=== PATIENT | male | born 1945 | race Caucasian/White ===

== ENCOUNTER 2016-11-11 13:50 | Outpatient (RCR) | payer MEDICARE, BC | END 2016-12-07 | disposition home or self-care (01) | LOC: PTY 13:50 | DX: M54.5 Low back pain (principal) | CPT/HCPCS: 97110; 97161; G0283; G8978; G8979 ==

== ENCOUNTER 2016-12-14 13:47 | Outpatient (RCR) | payer MEDICARE, BC | END 2017-01-07 | disposition home or self-care (01) | LOC: PTY 13:47 | DX: M54.5 Low back pain (principal) | CPT/HCPCS: 97110; G0283; G8979; G8980 ==

== ENCOUNTER 2017-03-02 11:00 | Outpatient (RCR) | payer MEDICARE, BC | END 2017-03-09 | disposition home or self-care (01) | LOC: PTY 11:00 | DX: S86.912A Strain of unspecified muscle(s) and tendon(s) at lower leg level, left leg, initial encounter (principal); X50.9XXA Other and unspecified overexertion or strenuous movements or postures, initial encounter; Y93.A1 Activity, exercise machines primarily for cardiorespiratory conditioning; Y92.89 Other specified places as the place of occurrence of the external cause; Y99.8 Other external cause status; M54.5 Low back pain | CPT/HCPCS: 97035; 97110; 97161; G0283; G8978; G8979 ==

== ENCOUNTER → 2018-04-19 | Outpatient (CLI) | payer MEDICARE, BC ==
--- NOTE | 2018-04-19 10:44 | Diagnostic Imaging Report ---
Indication:Abdominal pain Technique: Grayscale and duplex Doppler imaging of the abdomen performed. Comparison: None Findings: The liver, demonstrated part of the pancreas, aorta and IVC, both kidneys, spleen appear unremarkable. Gallbladder sludge noted. There is no biliary ductal dilatation identified. Doppler evaluation of the main portal vein shows patency. There is no ascites. CBD is 5 mm. No hydronephrosis seen. Small right pleural effusion is present. Impression: No acute findings. Small right pleural effusion
== END | disposition home or self-care (01) ==
LOC: ULS 08:37
DX: R10.11 Right upper quadrant pain (principal); J90 Pleural effusion, not elsewhere classified
CPT/HCPCS: 76700

== ENCOUNTER → 2019-08-14 | Outpatient (CLI) | payer MEDICARE, BC ==
--- NOTE | 2019-08-14 17:10 | Diagnostic Imaging Report ---
Indication: Cough Technique: 2 views of the chest Comparison: 07/29/2016 Findings: Interim development of a large right pleural effusion. Left lung and pleural space are clear. Again demonstrated is a T12 compression fracture deformity Impression: Large right pleural effusion T12 compression fracture deformity, also previously reported
== END | disposition home or self-care (01) ==
LOC: RAD 16:15
DX: Z01.818 Encounter for other preprocedural examination (principal); R05 Cough; J90 Pleural effusion, not elsewhere classified; Z01.812 Encounter for preprocedural laboratory examination
CPT/HCPCS: 71046

== ENCOUNTER 2019-08-24 08:16 | Outpatient (CLI) | payer MEDICARE, BC ==
[~2019-08-24] VITALS: Ht 162.6 cm; Wt 80.3 kg
[2019-08-24 08:59] VITALS: BP 116/80
[2019-08-24] MEDS ORDERED: SILDENAFIL PO (09:17)
[2019-08-24] MEDS ORDERED: PANTOPRAZOLE SO40 MG ORAL (09:17)
[2019-08-24] MEDS ORDERED: PROSCAR5 MG ORAL (09:17)
[2019-08-24] MEDS ORDERED: FOSAMAX70 MG ORAL (09:17)
[2019-08-24] MEDS ORDERED: TESTOSTERO100 MG/1 M IM (09:17)
--- NOTE | 2019-08-24 10:28 | Diagnostic Imaging Report ---
Indications: Pleural effusion Technique: Ultrasound used to localize optimal puncture site. Sterile prepping and draping of the right lower chest performed. Local anesthesia with 1% lidocaine. Dermatotomy made. Puncture of the pleural space using thoracentesis needle. Stylet removed. Catheter placed to vacuum bottle suction. Fluid was aspirated. Patient tolerated procedure well, without immediate complication. Findings: Followup sonography demonstrates slightly loculated residual fluid. Fluid obtained was katiana in color. Analysis of the fluid was sent to the lab/pathology as requested. Followup chest x-ray is pending. Impression: Successful ultrasound-guided right thoracentesis, yielding 0.3 liters of fluid
[2019-08-24 11:00] VITALS: BP 118/80
[2019-08-24 11:15] VITALS: BP 128/91
--- NOTE | 2019-08-24 11:16 | Diagnostic Imaging Report ---
Indication: Status post thoracentesis Comparison: 08/14/2019 A single view chest radiograph was obtained. Findings: There is no pneumothorax identified following right diagnostic/therapeutic thoracentesis. Radiographically, there is no significant change from 08/14/2019. Approximately 300 cc was removed from the right pleural space. Sonographically, there was evidence of loculation of the pleural fluid accounting for the subtotal removal of fluid. There is a rounded density at the right midlung level that may be inflammatory, neoplastic or due to rounded atelectasis. Follow-up is recommended. Consider obtaining CT chest with contrast for further evaluation and correlating with the diagnostic thoracentesis results.There is a scoliosis of the thoracic spine present. IMPRESSION: No pneumothorax following right thoracentesis. Subtotal removal of fluid due to loculation of pleural fluid with a moderate to large residual pleural effusion. Recommend follow-up. Consider CT with contrast for further evaluation as discussed above.
[2019-08-24 11:30] VITALS: BP 119/85
[2019-08-24 12:00] VITALS: BP 121/81
--- NOTE | 2019-08-24 12:03 | Diagnostic Imaging Report ---
Indication: Postthoracentesis Comparison: Earlier film today 10:19 A single view chest radiograph was obtained. Findings: Study performed 11:52. No change seen since the prior study. No evidence of pneumothorax. Other findings are stable. IMPRESSION: No pneumothorax identified.
== END 2019-08-24 12:30 | disposition home or self-care (01) ==
LOC: ULS 08:16
DX: J90 Pleural effusion, not elsewhere classified (principal)
CPT/HCPCS: 71045; 76942; 87070; 87205; 88104; 89051

== ENCOUNTER 2019-11-11 19:20 | Emergency (ER) | payer MEDICARE, BC ==
[~2019-11-11] VITALS: Ht 182.9 cm; Wt 108.9 kg
[~2019-11-11 19:20] MED LIST: FOSAMAX70 MG ORAL; FUROSEMIDE20 M1 ORAL; PANTOPRAZOLE SO40 MG ORAL; PROSCAR5 MG ORAL; SILDENAFIL PO; TESTOSTERO100 MG/1 M IM
--- NOTE | 2019-11-11 19:34 | NUR ---
ED Nurse Note: pt presents to ED with SOB and bilat lower extremity swelling. pt states that he was recently at [facility] for a varicose vein procedure because he has chronic SOB and edema of his lower extremities. pt has a dressing to his R chest from a recent procedure. pt denies any pain at this time
[2019-11-11 19:45] VITALS: BP 123/84
--- NOTE | 2019-11-11 20:01 | Emergency Room Report ---
History of Present Illness General Chief Complaint: Dyspnea/Respdistress Source: Patient Present Illness HPI Patient presents with complaints of worsening shortness of breath Reports that he has had chronic right-sided pleural effusion which Different specialist and primary physician have not been able to determine the source of Patient has also been having increased edema in both of his lower extremities up to the pelvic area Patient had recent varicose vein surgery as well Patient has been following a thoracic surgeon at [facility] Reports that he had the chest tube catheter removed on Tuesday at [facility] And now presents with increasingly shortness of breath Denies any vomiting or diarrhea reports that recently had a trip to [place] In end of September where he had poor diet and increase salt intake Allergies: Coded Allergies: No Known Allergies (Unverified , 11/11/16) Patient History Past Medical History: see triage record Reviewed Nursing Documentation: PMH: Agreed; PSxH: Agreed Nursing Documentation-PMH Hx Cardiac Problems: No Hx Cancer: No Hx Gastrointestinal Problems: Yes Hx Neurological Problems: No Review of Systems All Other Systems: negative except mentioned in HPI Physical Exam Vital Signs Date Time Temp Pulse Resp B/P (MAP) Pulse Ox O2 Delivery O2 Flow Rate FiO2 11/11/19 19:27 98.8 116 18 123/84 (97) 89 Room Air Sp02 EP Interpretation: reviewed, abnormal - 89% on room air which is low on 2 L the patient was saturating at 98% which is normal General Appearance: mild distress - Appears uncomfortable and short of breath Head: normocephalic, atraumatic Eyes: bilateral eye PERRL, bilateral eye EOMI ENT: EOM grossly intact, normal pharynx Neck: supple Respiratory: no retraction, no accessory muscle use, crackles - And decreased breath sounds in the right lower lobe Cardiovascular #1: tachycardia Gastrointestinal: non tender, soft Musculoskeletal: other - Significant edema bilaterally involving from pelvic area down all the way through down to the feet Neurologic: alert, oriented x3 Psychiatric: normal inspection Skin: other - Significant edema involving the pelvic area genital region edema down to the ankles and feet bilaterally. Dressing patch in the right lower chest Lymphatic: no adenopathy Medical Decision Making Diagnostic Impression: Primary Impression: Dyspnea Additional Impressions: Trapped lung Pleural effusion ER Course Given the patient's history and presentation multiple differentials are in consideration including but not limited to cardiac, cardiopulmonary, vascular process Patient's x-ray shows trapping and effusion of the right lower lobe Patient is following closely at [facility] His cardiothoracic specialist was contacted at [phone] I spoke to the on- call physician ,Dr Genao, on-call for Dr. Zamora She did accept the patient to their facility for further intervention and likely drain tube placement I did discuss the x-ray findings and she reports that the patient usually has White out of the right lung and likely secondary to the drain that was in place there is the wedge appearance of the lower lobe However after establishing contact with the transfer center they note that they have no capacity for monitored beds, I did Discuss with them the importance of the patient's transfer for higher level of care that we do not have capacity for, cardiothoracic specialty at this facility And they will reattempt placement of the patient Labs Test 11/11/19 19:57 White Blood Count 12.7 K/UL (4.8-10.8) Red Blood Count 3.65 M/UL (4.70-6.10) Hemoglobin 10.3 G/DL (14.2-18.0) Hematocrit 33.8 % (42.0-52.0) Mean Corpuscular Volume 93 FL (80-99) Mean Corpuscular Hemoglobin 28.1 PG (27.0-31.0) Mean Corpuscular Hemoglobin Concent 30.3 G/DL (32.0-36.0) Red Cell Distribution Width 19.2 % (11.6-14.8) Platelet Count 329 K/UL (150-450) Mean Platelet Volume 6.4 FL (6.5-10.1) Neutrophils (%) (Auto) % (45.0-75.0) Lymphocytes (%) (Auto) % (20.0-45.0) Monocytes (%) (Auto) % (1.0-10.0) Eosinophils (%) (Auto) % (0.0-3.0) Basophils (%) (Auto) % (0.0-2.0) Neutrophils % (Manual) 88 % (45-75) Lymphocytes % (Manual) 5 % (20-45) Monocytes % (Manual) 5 % (1-10) Eosinophils % (Manual) 0 % (0-3) Basophils % (Manual) 2 % (0-2) Band Neutrophils 0 % (0-8) Platelet Estimate Adequate Platelet Morphology Normal Hypochromasia 1+ Anisocytosis 1+ Prothrombin Time 13.7 SEC (9.30-11.50) Prothromb Time International Ratio 1.3 (0.9-1.1) Activated Partial Thromboplast Time 31 SEC (23-33) Sodium Level 135 MMOL/L (136-145) Potassium Level 4.1 MMOL/L (3.5-5.1) Chloride Level 99 MMOL/L (98-107) Carbon Dioxide Level 26 MMOL/L (21-32) Anion Gap 10 mmol/L (5-15) Blood Urea Nitrogen 25 mg/dL (7-18) Creatinine 0.9 MG/DL (0.55-1.30) Estimat Glomerular Filtration Rate mL/min (>60) Glucose Level 140 MG/DL (74-106) Calcium Level 8.5 MG/DL (8.5-10.1) Total Bilirubin 1.3 MG/DL (0.2-1.0) Direct Bilirubin 0.6 MG/DL (0.0-0.3) Aspartate Amino Transf (AST/SGOT) 39 U/L (15-37) Alanine Aminotransferase (ALT/SGPT) 29 U/L (12-78) Alkaline Phosphatase 444 U/L (46-116) Total Creatine Kinase 101 U/L (26-308) Troponin I 0.000 ng/mL (0.000-0.056) Pro-B-Type Natriuretic Peptide 4004 pg/mL (0-125) Total Protein 7.8 G/DL (6.4-8.2) Albumin 2.2 G/DL (3.4-5.0) Globulin 5.6 g/dL Albumin/Globulin Ratio 0.4 (1.0-2.7) Rhythm Strip Diag. Results EP Interpretation: yes Rate: 77 Rhythm: NSR, no PVC's, no ectopy Chest X-Ray Diagnostic Results Chest X-Ray Diagnostic Results : Chest X-Ray Ordered: Yes # of Views/Limited/Complete: 1 View Indication: Shortness of Breath EP Interpretation: Yes Interpretation: other - Lung trapping right lower lobe, effusion with wedge- shaped air-fluid level, no shift heart size normal Impression: Other - As above Electronically Signed by: Andre Jeong DO Last Vital Signs Date Time Temp Pulse Resp B/P (MAP) Pulse Ox O2 Delivery O2 Flow Rate FiO2 11/11/19 19:27 98.8 116 18 123/84 (97) 89 Room Air Status: improved Disposition: XFER SHT-TRM HOSP Condition: Serious Andre Jeong DO Nov 11, 2019 20:01
[2019-11-11 20:43] LABS: HEMATOCRIT 33.8 % (42.0-52.0); HEMOGLOBIN 10.3 G/DL (14.2-18.0); MEAN CORPUSCULAR VOLUME 93 FL (80-99); PLATELET COUNT 329 K/UL (150-450); RED BLOOD COUNT 3.65 M/UL (4.70-6.10); RED CELL DISTRIBUTION WIDTH 19.2 % (11.6-14.8); WHITE BLOOD COUNT 12.7 K/UL (4.8-10.8)
[2019-11-11 20:47] LABS: INR 1.3 (0.9-1.1)
[2019-11-11 21:00] LABS: ANION GAP 10 mmol/L (5-15); BLOOD UREA NITROGEN 25 mg/dL (7-18); CALCIUM 8.5 MG/DL (8.5-10.1); CARBON DIOXIDE 26 MMOL/L (21-32); CHLORIDE 99 MMOL/L (98-107); CREATININE 0.9 MG/DL (0.55-1.30); POTASSIUM 4.1 MMOL/L (3.5-5.1); SODIUM 135 MMOL/L (136-145)
[2019-11-11 21:11] LABS: ALANINE AMINOTRANSFERASE 29 U/L (12-78); ALBUMIN 2.2 G/DL (3.4-5.0); ALBUMIN/GLOBULIN RATIO 0.4 (1.0-2.7); ALKALINE PHOSPHATASE 444 U/L (46-116); ASPARTATE AMINO TRANSFERASE 39 U/L (15-37); BILIRUBIN,TOTAL 1.3 MG/DL (0.2-1.0); CREATINE KINASE 101 U/L (26-308)
[2019-11-11] MEDS ORDERED: rOPINIRole 0.25mg tab ORAL ONE (21:15)
[2019-11-11] MEDS ORDERED: ALPRAZolam 0.5mg tab ORAL ONE (21:15)
[2019-11-11 21:20] LABS: BILIRUBIN,DIRECT 0.6 MG/DL (0.0-0.3)
--- NOTE | 2019-11-11 21:20 | NUR ---
ED Nurse Note: requip 0.25 mg oral tablet is not stocked in ED pyxis and global find results did not show any on other floors. call made to pipeline about medication
--- NOTE | 2019-11-11 21:25 | NUR ---
ED Nurse Note: pt has urinated about 1000 mL and verbalized that he is feeling better, states he "feels much more comfortable now." Call made to pipeline about requip, maintenance operator said someone would call back about medication availability. will continue to monitor pt and await for medications
--- NOTE | 2019-11-11 22:05 | NUR ---
ED Nurse Note: [place], pharmacist returned call. stated that ED pyxis only carries 1.0 mg of requip. ERMD notified, pt states he is okay with not taking requip at this time
--- NOTE | 2019-11-11 22:30 | NUR ---
ED Nurse Note: report given to EMY Garcia from [facility]
[2019-11-11 22:45] VITALS: BP 123/84
--- NOTE | 2019-11-11 22:45 | NUR ---
ED Nurse Note: pt transferred to [facility] via ambulance [facility] unit # [id number]
--- NOTE | 2019-11-12 14:13 | Diagnostic Imaging Report ---
Indication: Dyspnea Comparison: 08/24/2019, 08/14/2019 A single view chest radiograph was obtained. Findings: There is a large lucency projected at the right lung base presumably pleural in nature. Less patient has had recent thoracentesis or other explanation for the air, one should consider possibility of infection accounting for this air or a bronchopleural fistula. In the past, on multiple previous chest x-rays, there was chronic appearing right pleural effusion with suggestion of loculation. This persists but now there is a lucency associated with the effusion which is suggestive of air in the pleural space. The heart is enlarged. There is evidence of mild CHF with prominent pulmonary vascularity but this appears stable compared to prior studies. IMPRESSION: Development of air at the right lung base likely within the pleural space. Differential includes infection, bronchopleural fistula or recent thoracentesis. Less likely, this could represent diaphragmatic hernia with bowel or other air-filled structure accounting for this. Please see discussion above.
== END 2019-11-11 22:45 | disposition short-term general hospital (02) ==
LOC: EMR 20:04 → CANBEDREQ 21:55 → EMR 22:45
DX: J90 Pleural effusion, not elsewhere classified (principal); R06.00 Dyspnea, unspecified; I50.9 Heart failure, unspecified; J93.9 Pneumothorax, unspecified
CPT/HCPCS: 36415; 71045; 80053; 82248; 82550; 83880; 84484; 85007; 85025; 85610; 85730; 93005; 96374; 99284; J1940